=== PATIENT | female | born 1955 | race Caucasian/White ===

== ENCOUNTER 2018-01-12 16:33 | Emergency (ER) | payer BC ==
[~2018-01-12] VITALS: Ht 162.6 cm; Wt 76.0 kg
[2018-01-12] MEDS ORDERED: ESCI10TA54 PO (16:42)
[2018-01-12] MEDS ORDERED: LEVO25TA7 PO (16:42)
[2018-01-12] MEDS ORDERED: LORAZEPAM 2MG/ML CPJ IM ONE (20:15)
[2018-01-12 21:00] LABS: CHLORIDE 98 mEq/L (98-107)
[2018-01-12 21:08] LABS: BASOPHILS % 0.7 % (0.0-2.0); EOSINOPHILS % 0.1 % (0.0-5.0); HEMATOCRIT. 40.1 % (36.0-48.0); HEMOGLOBIN. 14.2 g/dL (12.0-16.0); LYMPHOCYTES % 21.8 % (20.0-50.0); MEAN CORPUSCULAR HEMOGLOBIN 31.4 pg (28.0-32.0); MEAN CORPUSCULAR VOLUME 88.4 fL (81.0-99.0); MEAN PLATELET VOLUME 10.1 fl (7.4-10.4); MONOCYTES % 7.4 % (2.0-8.0); PLATELET 352 x1000/uL (130-400); RED BLOOD CELL COUNT 4.53 mill/uL (4.2-5.4); RED CELL DISTRIBUTION WIDTH 12.7 % (11.6-14.6)
[2018-01-12 23:00] VITALS: BP 120/74
== END 2018-01-12 23:38 | disposition home or self-care (01) ==
LOC: ER 16:59
DX: R06.02 Shortness of breath (principal); R07.89 Other chest pain; R20.0 Anesthesia of skin; T42.4X5A Adverse effect of benzodiazepines, initial encounter; T43.225A Adverse effect of selective serotonin reuptake inhibitors, initial encounter; Y92.098 Other place in other non-institutional residence as the place of occurrence of the external cause; F41.0 Panic disorder [episodic paroxysmal anxiety]; I10 Essential (primary) hypertension; Z86.59 Personal history of other mental and behavioral disorders; E78.00 Pure hypercholesterolemia, unspecified; E03.9 Hypothyroidism, unspecified
CPT/HCPCS: 36415; 80053; 83690; 84484; 85025; 93005; 96372; 99285; J2060; Z7610